=== PATIENT | male | born 1960 | race American Indian/Alaskan Native ===

== ENCOUNTER 2016-11-22 17:44 | Emergency (ER) | payer OTHER ==
--- NOTE | 2016-11-22 19:02 | XRay Report ---
FINAL REPORT EXAM: XR SHOULDER 2 RT HISTORY: fall/ ro fx or dislocation COMPARISONS: None. FINDINGS: Three views right shoulder Right glenohumeral joint appears intact. Mild acromioclavicular osteoarthrosis. The acromioclavicular and coracoclavicular intervals are within normal limits. No displaced fractures. Incomplete evaluation of the adjacent right lung is unremarkable. IMPRESSION: No fracture or dislocation.
--- NOTE | 2016-11-22 19:32 | Emergency Department Report ---
ED Upper Extremity Inj HPI - General Chief Complaint: Shoulder Injury Stated Complaint: SHOULDER INJURY/FALL Time Seen by Provider: 11/22/16 19:06 Source: patient Mode of arrival: Ambulatory Limitations: No Limitations - History of Present Illness Initial Comments: This is a 56-year-old well-nourished with nontoxic or ill in appearance that presents with right shoulder pain. Patient stated this afternoon he was picking strawberries in his yard and fell backwards into a 3 feet ditch which he landed on his right shoulder. Patient describes pain as aching with level of 9/10. Patient denies any sensation of pop noises, weakness, numbness, tingling, joint swelling, joint redness, laceration, ecchymosis, fever, chills, chest pain or shortness of breath. He denies any allergies. Fabiano Past medical history. Complaint: Injury to:: right, shoulder -: Sudden, This afternoon Other Extremity Injury: Shoulder: Right Other Injuries: none Place: home Severity scale (0 -10): 9 Improves With: immobilization Worsens With: movement of extremity Context: fall Associated Symptoms: denies other symptoms. denies: weakness, numbness, neck pain, suspects foreign body, nausea/vomiting, heard/felt popping sensat - Related Data Previous Rx's Medication Instructions Recorded Last Taken Type Ibuprofen [Motrin 600 MG tab] 600 mg PO Q8H PRN #20 tablet 11/22/16 Unknown Rx Allergies Allergy/AdvReac Type Severity Reaction Status Date / Time No Known Allergies Allergy Unverified 11/22/16 18:21 ED Review of Systems ROS: Stated complaint: SHOULDER INJURY/FALL Other details as noted in HPI Constitutional: denies: chills, fever Eyes: denies: eye pain, eye discharge, vision change ENT: denies: ear pain, throat pain Respiratory: denies: cough, shortness of breath, wheezing Cardiovascular: denies: chest pain, palpitations Endocrine: no symptoms reported Gastrointestinal: denies: abdominal pain, nausea, diarrhea Genitourinary: denies: urgency, dysuria Musculoskeletal: denies: back pain, joint swelling, arthralgia Skin: denies: rash, lesions Neurological: denies: headache, weakness, paresthesias Psychiatric: denies: anxiety, depression Hematological/Lymphatic: denies: easy bleeding, easy bruising ED Past Medical Hx - Past Medical History Previous Medical History?: No - Surgical History Past Surgical History?: No - Social History Smoking Status: Unknown if ever smoked Substance Use Type: None - Medications Home Medications: Home Medications Medication Instructions Recorded Confirmed Last Taken Type Ibuprofen [Motrin 600 MG tab] 600 mg PO Q8H PRN #20 tablet 11/22/16 Unknown Rx ED Physical Exam - General Limitations: No Limitations General appearance: alert, in no apparent distress - Head Head exam: Present: atraumatic, normocephalic, normal inspection - Eye Eye exam: Present: normal appearance, PERRL, EOMI. Absent: scleral icterus, conjunctival injection, nystagmus, periorbital swelling, periorbital tenderness Pupils: Present: normal accommodation - ENT ENT exam: Present: normal exam, normal orophraynx, mucous membranes moist, TM's normal bilaterally, normal external ear exam - Neck Neck exam: Present: normal inspection, full ROM. Absent: tenderness, meningismus, lymphadenopathy, thyromegaly - Respiratory Respiratory exam: Present: normal lung sounds bilaterally. Absent: respiratory distress, wheezes, rales, rhonchi, stridor, chest wall tenderness, accessory muscle use, decreased breath sounds, prolonged expiratory - Cardiovascular Cardiovascular Exam: Present: regular rate, normal rhythm, normal heart sounds. Absent: bradycardia, tachycardia, irregular rhythm, systolic murmur, diastolic murmur, rubs, gallop - GI/Abdominal GI/Abdominal exam: Present: soft, normal bowel sounds. Absent: distended, tenderness, guarding, rebound, rigid, diminished bowel sounds - Rectal Rectal exam: Present: deferred - Extremities Exam Extremities exam: Present: normal inspection, full ROM, normal capillary refill. Absent: tenderness, pedal edema, joint swelling, calf tenderness - Expanded Upper Extremity Exam Right General: Present: normal inspection Shoulder Exam: Present: normal inspection, full ROM, tenderness, other (Limited ROM due to pain). Absent: swelling, abrasion, laceration, ecchymosis, deformity , crepidus, dislocation, erythema, tenderness over AC joint Upper Arm exam: Present: normal inspection, full ROM. Absent: tenderness, swelling, abrasion, laceration, ecchymosis, deformity, crepidus, dislocation, erythema Elbow exam: Present: normal inspection, full ROM. Absent: tenderness, swelling , abrasion, laceration, ecchymosis, deformity, crepidus, dislocation, erythema, effusion, pain w/ pronation/supination, tenderness over radial head Forearm Wrist exam: Present: normal inspection, full ROM. Absent: tenderness, swelling, abrasion, laceration, ecchymosis, deformity, crepidus, dislocation, erythema, tenderness over anatomical snuff box, pain with axial thumb loading Hand Wrist exam: Present: normal inspection, full ROM. Absent: tenderness, swelling, abrasion, laceration, ecchymosis, deformity, crepidus, dislocation, erythema, amputation, nail avulsion, subungual hematoma Neuro motor exam: Present: wrist extension intact, thumb opposition intact, thumb IP flexion intact, thumb adduction intact, fingers 2-5 abduction intact Neurosensory exam: Present: 2-point discrimination, radial nerve intact, ulnar nerve intact, median nerve intact Vascular: Present: vascular compromise, normal capillary refill, radial pulse, brachial pulse, ulnar pulse - Back Exam Back exam: Present: normal inspection, full ROM. Absent: tenderness, CVA tenderness (R), CVA tenderness (L), muscle spasm, paraspinal tenderness, vertebral tenderness, rash noted - Neurological Exam Neurological exam: Present: alert, oriented X3, CN II-XII intact, normal gait, reflexes normal - Psychiatric Psychiatric exam: Present: normal affect, normal mood - Skin Skin exam: Present: warm, dry, intact, normal color. Absent: rash - Other Other exam information: Unable to exam painful arc test and drop arm test due to painful ROM. Denies weakness of external rotation. ED Course Vital Signs 11/22/16 18:17 Temperature 98.2 F Pulse Rate 81 Respiratory 18 Rate Blood Pressure 158/93 O2 Sat by Pulse 97 Oximetry - Reevaluation(s) Reevaluation #1: 11/22/16 19:39 Patient is sitting on the chair with present. No signs of distress noted. ED Medical Decision Making - Medical Decision Making Ed course: This is 56-year-old male that presents with right shoulder strain 1- patient was examined by myself. Xray results was dictated by Dr. Murrieta. Mild AC osteoarthritis. No fracture or dislocation. 2- patient received ibuprofen 800 mg by mouth in ED. 3- A for further immobilizer has been placed the patient was instructed to follow-up with Dr. Moore/orthopedic in 3-5 days or if symptoms worsen such as numbness, tingling, joint swelling, joint redness fever or chills, chest pain or shortness of breath and to return emergency room as was possible. 4 patient received ibuprofen 600 mg by mouth at the time of discharge 5- Patient was instructed to RICE therapy 6- at time time of discharge, the patient does not seem toxic or ill in appearance. No acute signs of distress noted. Patient agrees to discharge treatment plan of care. No further questions noted by the patient. Critical care attestation.: If time is entered above; I have spent that time in minutes in the direct care of this critically ill patient, excluding procedure time. ED Disposition Clinical Impression: Right shoulder strain Qualifiers: Encounter type: initial encounter Qualified Code(s): S46.911A - Strain of unspecified muscle, fascia and tendon at shoulder and upper arm level, right arm , initial encounter Disposition: TO HOME OR SELFCARE Is pt being admited?: No Does the pt Need Aspirin: No Condition: Stable Instructions: Ibuprofen (By mouth), RICE Therapy (ED) Additional Instructions: Follow-up with Dr. Moore/orthopedic in 3-5 days or if symptoms worsen such as numbness, tingling, joint swelling, joint redness fever or chills, chest pain or shortness of breath and to return emergency room as was possible. Ibuprofen as prescribed. Rest and ice extremity Prescriptions: Ibuprofen [Motrin 600 MG tab] 600 mg PO Q8H PRN #20 tablet PRN Reason: Pain Referrals: JESSE MOORE MD [Staff Physician] - 3-5 Days [facility] [place] [Outside] - 3-5 Days [facility] [place] [Outside] - 3-5 Days [facility] [Referring] - 3-5 Days Forms: Work/School Release Form(ED)
[2016-11-22] MEDS ORDERED: MOTRIN PO ONE (19:39)
[2016-11-23 00:09] VITALS: BP 163/79
== END 2016-11-22 20:15 | disposition home or self-care (01) ==
LOC: ED 17:44
DX: S46.911A Strain of unspecified muscle, fascia and tendon at shoulder and upper arm level, right arm, initial encounter (principal); W17.89XA Other fall from one level to another, initial encounter; Y93.89 Activity, other specified; Y99.8 Other external cause status; Y92.096 Garden or yard of other non-institutional residence as the place of occurrence of the external cause

== ENCOUNTER 2016-12-04 16:09 | Outpatient (CLI) | payer OTHER ==
--- NOTE | 2016-12-05 12:14 | Magnetic Resonance Report ---
MRI RIGHT SHOULDER WITHOUT CONTRAST: 12/04/16 CLINICAL: Rotator cuff tear. TECHNIQUE: Coronal T1, coronal T2, coronal proton density fat saturation, sagittal proton density fat saturation and axial gradient echo T* sequences on a 1.5 Mónica magnet. FINDINGS: Type I acromion with moderate acromioclavicular joint arthritis and a subacromial osteophyte. Full-thickness tears of the supraspinatus tendon and the infraspinatus tendon with retraction of the tendons. There is a large fluid-filled gap produced by the retraction of the tendons and a moderate joint effusion. The subscapularis tendon is intact. The long head of the biceps tendon is intact but there is fluid in the tendon sheath. Intact glenoid labrum. Normal marrow signal with no bone contusion or fracture. No evidence of muscle atrophy. IMPRESSION: 1. Rotator cuff tear with full-thickness tear is of the supraspinatus and infraspinatus tendons. 2. Acromioclavicular joint arthritis with impingement of the rotator cuff. 3. Biceps tendon sheath fusion but no biceps tendon tear.
== END 2016-12-04 16:10 | disposition home or self-care (01) ==
LOC: MRI 16:09
PROVIDERS: ATTEND Orthopaedic Surgery
DX: M75.121 Complete rotator cuff tear or rupture of right shoulder, not specified as traumatic (principal); M13.811 Other specified arthritis, right shoulder; M25.811 Other specified joint disorders, right shoulder

== ENCOUNTER 2020-03-09 04:42 | Emergency (ER) | payer OTHER ==
[2020-03-09 04:54] VITALS: BP 172/91
--- NOTE | 2020-03-09 06:52 | Emergency Department Report ---
ED Male HPI - General Chief complaint: Abdominal Pain Stated complaint: URINARY RETENTION Time Seen by Provider: 03/09/20 06:08 Source: patient Mode of arrival: Ambulatory Limitations: No Limitations - History of Present Illness Initial comments: Patient is a 59-year-old F Romanian male who was recently started treatments with urology regarding elements swollen prostate. Patient states he started having some urinary retention at 5 PM yesterday. Patient was having some suprapubic pain is unable to pass any urine. Patient denies nausea vomiting diarrhea. Pain is 6 out of 10 in severity. - Related Data Previous Rx's Medication Instructions Recorded Last Taken Type Ibuprofen [Motrin 600 MG tab] 600 mg PO Q8H PRN #20 tablet 11/22/16 Unknown Rx Allergies Allergy/AdvReac Type Severity Reaction Status Date / Time No Known Allergies Allergy Unverified 11/22/16 18:21 ED Review of Systems ROS: Stated complaint: URINARY RETENTION Other details as noted in HPI Comment: All other systems reviewed and negative ED Past Medical Hx - Past Medical History Previous Medical History?: Yes Additional medical history: BPH - Surgical History Past Surgical History?: Yes Hx Appendectomy: Yes Additional Surgical History: Right Rotator Cuff - Social History Smoking Status: Never Smoker Substance Use Type: None - Medications Home Medications: Home Medications Medication Instructions Recorded Confirmed Last Taken Type Ibuprofen [Motrin 600 MG tab] 600 mg PO Q8H PRN #20 tablet 11/22/16 Unknown Rx ED Physical Exam - General Limitations: No Limitations General appearance: alert, in no apparent distress - Head Head exam: Present: atraumatic, normocephalic - Eye Eye exam: Present: normal appearance - ENT ENT exam: Present: mucous membranes moist - Neck Neck exam: Present: normal inspection - Respiratory Respiratory exam: Present: normal lung sounds bilaterally. Absent: respiratory distress, wheezes, rales, rhonchi - Cardiovascular Cardiovascular Exam: Present: regular rate, normal rhythm. Absent: systolic murmur, diastolic murmur, rubs, gallop - GI/Abdominal GI/Abdominal exam: Present: soft, tenderness (suprapubic), normal bowel sounds. Absent: distended, guarding, rebound - Rectal Rectal exam: Present: deferred - Extremities Exam Extremities exam: Present: normal inspection - Back Exam Back exam: Present: normal inspection - Neurological Exam Neurological exam: Present: alert, oriented X3 - Psychiatric Psychiatric exam: Present: normal affect, normal mood - Skin Skin exam: Present: warm, dry, intact, normal color. Absent: rash ED Course Vital Signs 03/09/20 04:49 Temperature 98.2 F Pulse Rate 88 Respiratory 18 Rate Blood Pressure 172/91 O2 Sat by Pulse 98 Oximetry ED Medical Decision Making - Medical Decision Making Patient had a coud past. He was able to drain 500 cc of cloudy urine. Patient is on antibiotics already. Patient will be discharged home with follow-up with his urologist. Given the patient a leg bag. Critical care attestation.: If time is entered above; I have spent that time in minutes in the direct care of this critically ill patient, excluding procedure time. ED Disposition Clinical Impression: Acute urinary retention Disposition: DC-01 TO HOME OR SELFCARE Is pt being admited?: No Does the pt Need Aspirin: No Condition: Stable Referrals: SWATI NUGENT MD [Staff Physician] - 3-5 Days Time of Disposition: 06:52
== END 2020-03-09 07:44 | disposition home or self-care (01) ==
LOC: ED 04:42
DX: R33.8 Other retention of urine (principal); Z79.899 Other long term (current) drug therapy; Z90.49 Acquired absence of other specified parts of digestive tract; Z98.890 Other specified postprocedural states
CPT/HCPCS: 51702